=== PATIENT | female | born 2000 | race Caucasian/White ===

== ENCOUNTER 2020-10-03 07:44 | Inpatient (IN) | payer MEDICAID ==
[2020-10-03] MEDS ORDERED: RINGERS SOLUTION,LACTATED 1,000 ML IV PRN ×3 (08:22→08:51)
[2020-10-03] MEDS ORDERED: RINGERS SOLUTION,LACTATED 1,000 ML IV ONE (08:22)
[2020-10-03] MEDS ORDERED: MISOPROSTOL 0.2 MG TABLET ONE (08:23)
[2020-10-03] MEDS ORDERED: LIDOCAINE 1% INJ-PF (10 MG/ML) 30 ML SDV ONE (08:23)
[2020-10-03] MEDS ORDERED: OXYTOCIN/0.9 % SODIUM CHLORIDE 30 UNIT/500 ML RTUINJ ONE (08:23)
[2020-10-03] MEDS ORDERED: OXYTOCIN 10 UNIT/ML VIAL ONE (08:23)
[2020-10-03] MEDS ORDERED: NALBUPHINE HCL INJ 10 MG/1 ML AMPULE ONE (08:32)
[2020-10-03] MEDS ORDERED: PROMETHAZINE HCL INJ 25 MG/1 ML VIAL ONE (08:32)
[2020-10-03 08:34] LABS: URINE AMPHETAMINES SCREEN NEGATIVE; URINE BARBITURATES SCREEN NEGATIVE; URINE BENZODIAZEPINES SCREEN NEGATIVE; URINE COCAINE SCREEN NEGATIVE; URINE MARIJUANA (THC) SCREEN NEGATIVE; URINE METHADONE SCREEN NEGATIVE; URINE PHENCYCLIDINE SCREEN NEGATIVE
[2020-10-03] MEDS ORDERED: PROMETHAZINE HCL INJ 25 MG/1 ML VIAL IV PRN ×2 (08:35→18:22)
[2020-10-03 09:02] LABS: ABSOLUTE BASOPHILS # (AUTO) 0.1 10^3/uL (0.0-0.2); ABSOLUTE EOSINOPHILS # (AUTO) 0.1 10^3/uL (0.0-0.6); ABSOLUTE LYMPHOCYTES (AUTO) 2.7 10^3/uL (0.5-4.7); ABSOLUTE MONOCYTES (AUTO) 0.6 10^3/uL (0.1-1.4); ABSOLUTE NEUT (AUTO) 7.6 10^3/uL (1.7-8.2); BASOPHILS % (AUTO) 0.5 % (0-2); EOSINOPHILS % (AUTO) 0.5 % (0-6); HEMATOCRIT 30.5 % (36.0-47.0); LYMPHOCYTES % (AUTO) 24.8 % (13-45); MEAN CORPUSCULAR HEMOGLOBIN 25.4 pg (27.0-33.4); MEAN CORPUSCULAR HGB CONC 32.7 g/dL (32.0-36.0); MEAN CORPUSCULAR VOLUME 78 fl (80-97); MONOCYTES % (AUTO) 5.2 % (3-13); PLATELET COUNT 168 10^3/uL (150-450); RED BLOOD COUNT 3.92 10^6/uL (3.72-5.28); RED CELL DISTRIBUTION WIDTH 17.8 % (11.5-14.0); TOTAL CELLS COUNTED % (AUTO) 100 %; WHITE BLOOD COUNT 11.1 10^3/uL (4.0-10.5)
[2020-10-03] MEDS ORDERED: EPHEDRINE SULFATE INJ 50 MG/1 ML AMPULE ONE (09:06)
[2020-10-03] MEDS ORDERED: FENTANYL/BUPIVACAINE/NS/PF 300 MCG/150 ML RTUINJ EPI ONE (09:07)
[2020-10-03] MEDS ORDERED: ROPIVACAINE HCL 0.2% INJ/PF (2 MG/ML) 20 ML SDV ONE (09:07)
[2020-10-03] MEDS ORDERED: NALBUPHINE HCL INJ 10 MG/1 ML AMPULE INJ ONE (09:15)
--- NOTE | 2020-10-03 10:03 | Admission Physical ---
Datetime Report Generated by CPN: 10/03/2020 10:03 CURRENT ADMISSION Chief Complaint: Uterine Contractions; Suspected Ruptured Membranes Indication for Induction: Not Applicable Admit Impression : Term, Intrauterine ; Active Labor; Ruptured Membranes Admit Plan: Admit to Unit; Initiate Labor Protocol; Initiate Labor Augmentation Protocol ALLERGIES Medication Allergies: No Medication Allergies: shellfish derived (10/03/2020) Latex: No Latex Allergies Food Allergies: shellfish OBSTETRICAL HISTORY EDC: 10/07/2020 00:00 : 3 Para: 0 Term: 0 : 0 SAB: 2 IAB: 0 Gestational Diabetes: No Rh Sensitization: No Incompetent Cervix: No CHICA: No Infertility: No ART Treatment: No Uterine Anomaly: No IUGR: No Hx Previous C/S: No Macrosomia: No Hx Loss/Stillborn: No PIH: No Hx : No Placenta Previa/Abruption: No Depression/PP Depression: No PTL/PROM: No Post Hemorrhage: No SEE RECORDS Alcohol: No Marijuana : Yes Cocaine: No Other Illicit Drugs: No Cigarettes: Never Smoker. [id number] MEDICAL HISTORY Diabetes: No Blood Transfusion: No Pulmonary Disease (Asthma, TB): No Breast Disease: No Hypertension: No Paper Sorter Surgery: No Heart Disease: No Hosp/Surgery: No Autoimmune Disorder: No Anesthetic Complications: No Kidney Disease: No Abnormal Pap Smear: No Neuro/Epilepsy: No Psychiatric Disorders: Yes Other Medical Diseases: Yes Hepatitis/Liver Disease: No Significant Family History: No Varicosities/Phlebitis: No Trauma/Violence : No Thyroid Dysfunction: No Medical History Comments: depression, anxiety, childhood asthma, recurrent ovarian cyst INFECTIOUS HISTORY Gonorrhea: No Genital Herpes: No Chlamydia: No Tuberculosis: No Syphilis: No Hepatitis: No HIV/AIDS Exposure: No Rash or Viral Illness: No HPV: No PHYSICAL EXAM General: Normal HEENT: Normal Neurologic: Normal Thyroid: Normal Heart: Normal Lungs: Normal Breast: Normal Back: Normal Abdomen: Normal Genitourinary Exam: Normal Extremities: Normal DTRs: Normal Pelvic Type: Adequate Vital Signs: Reviewed; Within Normal Limits VAGINAL EXAM Dilatation: 3 Effacement: 75 Station: -1 MEMBRANES Pooling: Positive Membranes: Ruptured Amniotic Fluid Color: Clear FETUS A EGA: 39.3 Monitoring: External US FHR- Baseline: 120 Variability: Moderate 6-25bpm Accelerations: 15X15 Decelerations: None FHR Category: Category I Estimated Weight (gm): 4000 Presentation: Vertex PLANS FOR LABOR AND DELIVERY Pain Management: Epidural Feeding Preference: Breast Circumcision: N/A INFORMED CONSENT Signature: with User ID: [email or web address]
[2020-10-03] MEDS ORDERED: MEASLES,MUMPS&RUBELLA VACC/PF 0.5 ML VIAL SUBCUT PRN (18:22)
[2020-10-03] MEDS ORDERED: PROMETHAZINE HCL 25 MG TABLET PO PRN (18:22)
[2020-10-03] MEDS ORDERED: DIPH/PERTUSS(ACELL)/TETANUS VAC/PF 0.5 ML SYR (>=10YO) IM PRN (18:22)
[2020-10-03] MEDS ORDERED: BENZOCAINE/MENTHOL AEROSOL SPRAY 56 ML TOP PRN (18:22)
[2020-10-03] MEDS ORDERED: MAGNESIUM HYDROXIDE SUSP 30 ML UDCUP PO PRN (18:22)
[2020-10-03] MEDS ORDERED: ACETAMINOPHEN 325 MG TABLET PO PRN (18:22)
[2020-10-03] MEDS ORDERED: DIBUCAINE 1% OINTMENT 28 GM TP PRN (18:22)
[2020-10-03] MEDS ORDERED: GLYCERIN/WITCH HAZEL LEAF 1 EACH MED..WIPE TP PRN (18:22)
[2020-10-03] MEDS ORDERED: ACETAMINOPHEN WITH CODEINE #3 TABLET PO PRN ×2 (18:22)
[2020-10-03] MEDS ORDERED: NA PHOS,M-B/NA PHOS,DI-BA (ADULT) 133 ML ENEMA PR PRN (18:22)
[2020-10-03] MEDS ORDERED: PSEUDOEPHEDRINE HCL 30 MG TABLET PO PRN (18:22)
[2020-10-03] MEDS ORDERED: OXYTOCIN/0.9 % SODIUM CHLORIDE 30 UNIT/500 ML RTUINJ IV PRN (18:22)
[2020-10-03] MEDS ORDERED: ACETAMINOPHEN 650 MG SUPP.RECT PR PRN (18:22)
[2020-10-03] MEDS ORDERED: DIPHENHYDRAMINE HCL 25 MG CAPSULE PO PRN (18:22)
[2020-10-03] MEDS ORDERED: PROMETHAZINE HCL 25 MG SUPP.RECT PR PRN (18:22)
[2020-10-03] MEDS ORDERED: ZOLPIDEM TARTRATE 5 MG TABLET PO PRN (18:22)
--- NOTE | 2020-10-03 20:37 | Warning Signs in Babies ---
VOD Warning Signs Datetime Report Generated by N: 10/03/2020 20:37 VOD#608 -Warning Signs in Babies: Viewed with Parent(s)/Family (10/03/2020 20:29:Loida Corona RN)
[2020-10-03] MEDS ORDERED: IBUPROFEN 800 MG TABLET ONE (20:49)
[2020-10-03] MEDS: IBUPROFEN 800 MG TABLET PO SCH (21:55)
[2020-10-03] MEDS: FAMOTIDINE 20 MG TABLET PO SCH (22:26)
[2020-10-04] MEDS: IBUPROFEN 800 MG TABLET PO SCH ×4 (05:50→21:09)
[2020-10-04 06:53] LABS: HEMATOCRIT 28.1 % (36.0-47.0); HEMOGLOBIN 8.9 g/dL (12.0-15.5); MEAN CORPUSCULAR HGB CONC 31.8 g/dL (32.0-36.0); MEAN CORPUSCULAR VOLUME 79 fl (80-97); PLATELET COUNT 138 10^3/uL (150-450); RED BLOOD COUNT 3.58 10^6/uL (3.72-5.28); RED CELL DISTRIBUTION WIDTH 17.5 % (11.5-14.0); WHITE BLOOD COUNT 13.7 10^3/uL (4.0-10.5)
[2020-10-04] MEDS ORDERED: INFLUENZA QUAD (6MOS+) 2020-21 VAC 0.5 ML SYR IM ONE (08:00)
[2020-10-04] MEDS: FAMOTIDINE 20 MG TABLET PO SCH ×2 (09:43→21:09)
[2020-10-04] MEDS: PRENATAL VITAMIN W DHA CAPSULE PO SCH (09:43)
[2020-10-04] MEDS: SENNOSIDES/DOCUSATE 8.6-50 MG 1 EACH TABLET PO SCH (09:43)
[2020-10-04] MEDS: DOCUSATE SODIUM 100 MG CAPSULE PO SCH ×2 (09:43→17:24)
[2020-10-04] MEDS: FERROUS SULFATE 325 MG TABLET PO SCH ×2 (09:43→17:24)
--- NOTE | 2020-10-04 09:53 | PDOC PROGRESS REPORT ---
Subjective-OB Progress Note for:: 10/04/20 - PP day #1, doing well, UOB voiding, A+., Rubella immune, , Physical Exam (OB) Vital Signs: Temp Pulse Resp BP Pulse Ox 97.9 F 99 16 117/74 99 10/04/20 08:10 10/04/20 08:10 10/04/20 08:10 10/04/20 08:10 10/04/20 08:10 Intake & Output 10/03/20 10/04/20 10/05/20 06:59 06:59 06:59 Intake Total 1900 Output Total 300 Balance 1600 Weight 93.5 kg - General General Appearance: Appears well, Alert In distress: None - PIH/Pre-Eclampsia Clonus: Negative Headache: Absent Epigastric Pain: No Visual Changes: No - Maternal Morbidity 59. Maternal Morbidity (serious complications experinced by the mother associated with labor and delivery: None of the above - Lochia Lochia Amount: Scant < 10 ml Lochia Color: Rubra/Red - Abdomen Description: Soft, Round Hernia Present: No Fundal Description: Firm, Midline Fundal Height: u/u - u/2 - Respiratory Respiratory Status: No respiratory distress - Abdominal Distension: No distension Tenderness: Nontender - Genitourinary Genitourinary Note: voiding - Extremities Upper extremity: Normal inspection Lower extremities: Normal inspection - Neurological Cognition: Normal Orientation: AAOx4 - Psychological Associated symptoms: Normal affect, Normal mood - Skin Skin Temperature: Warm Skin Moisture: Dry Objective-Diagnostic Laboratory: 10/04/20 06:32 10/03/20 10/04/20 08:45 06:32 WBC 13.7 H RBC 3.58 L Hgb 8.9 L Hct 28.1 L MCV 79 L MCH 25.0 L MCHC 31.8 L RDW 17.5 H Plt Count 138 L Blood Type A POSITIVE Antibody Screen NEGATIVE Assessment and Plan(PN) - Assessment and Plan (1) (normal spontaneous vaginal delivery) Is this a current diagnosis for this admission?: Yes (2) History of depression Is this a current diagnosis for this admission?: Yes (3) History of anxiety Is this a current diagnosis for this admission?: Yes (4) Anemia affecting Qualifiers: Trimester: third trimester Qualified Code(s): O99.013 - Anemia complicating , third trimester Is this a current diagnosis for this admission?: Yes Plan:: ambulation encouraged, iron rich foods, Routine PP order. May give IV iron if p atient approves - Time Spent with Patient Time with patient: Less than 15 minutes Medications reviewed and adjusted accordingly: Yes - Disposition Anticipated Discharge Disposition: Home, Self Care Anticipated Discharge Timeframe: within 24 hours
[2020-10-04] MEDS ORDERED: IRON SUCROSE COMPLEX INJ/PF 100 MG/5 ML SDV IV ONE (10:30)
[2020-10-05] MEDS: IBUPROFEN 800 MG TABLET PO SCH (05:26)
[2020-10-05] MEDS: PRENATAL VITAMIN W DHA CAPSULE PO SCH (10:03)
[2020-10-05] MEDS: FAMOTIDINE 20 MG TABLET PO SCH (10:03)
[2020-10-05] MEDS: FERROUS SULFATE 325 MG TABLET PO SCH (10:03)
[2020-10-05] MEDS: SENNOSIDES/DOCUSATE 8.6-50 MG 1 EACH TABLET PO SCH (10:03)
[2020-10-05] MEDS: DOCUSATE SODIUM 100 MG CAPSULE PO SCH (10:03)
--- NOTE | 2020-10-05 10:35 | PDOC DISCHARGE SUMMARY ---
Impression - Admit/DC Date/PCP Admission Date/Primary Care Provider: 10/03/20 08:30 SANDY MANCIA MD Discharge Date: 10/05/20 - Discharge Diagnosis (1) Anemia affecting Is this a current diagnosis for this admission?: Yes (2) History of anxiety Is this a current diagnosis for this admission?: Yes (3) History of depression Is this a current diagnosis for this admission?: Yes (4) (normal spontaneous vaginal delivery) Is this a current diagnosis for this admission?: Yes - Additional Information Discharge Diet: Regular Discharge Activity: Balance Activity w/Rest, Pelvic Rest Referrals: SANDY MANCIA MD [Primary Care Provider] - Prescriptions: Ibuprofen [Motrin 800 mg Tablet] 800 mg PO Q8HP PRN #60 tablet PRN Reason: Vit/Dha [ Multi + Dha Capsule] 1 cap PO DAILY #90 capsule Home Medications: Ibuprofen [Motrin 800 mg Tablet] 800 mg PO Q8HP PRN #60 tablet 10/05/20 Vit/Dha [ Multi + Dha Capsule] 1 cap PO DAILY #90 capsule 10/05/20 Hospital Course 59. Maternal Morbidity (serious complications experinced by the mother associated with labor and delivery: None of the above Results Laboratory Results: WBC 13.7 10^3/uL (4.0-10.5) H 10/04/20 06:32 RBC 3.58 10^6/uL (3.72-5.28) L 10/04/20 06:32 Hgb 8.9 g/dL (12.0-15.5) L 10/04/20 06:32 Hct 28.1 % (36.0-47.0) L 10/04/20 06:32 MCV 79 fl (80-97) L 10/04/20 06:32 MCH 25.0 pg (27.0-33.4) L 10/04/20 06:32 MCHC 31.8 g/dL (32.0-36.0) L 10/04/20 06:32 RDW 17.5 % (11.5-14.0) H 10/04/20 06:32 Plt Count 138 10^3/uL (150-450) L 10/04/20 06:32 Lymph % (Auto) 24.8 % (13-45) 10/03/20 08:45 Lawrence % (Auto) 5.2 % (3-13) 10/03/20 08:45 Eos % (Auto) 0.5 % (0-6) 10/03/20 08:45 Baso % (Auto) 0.5 % (0-2) 10/03/20 08:45 Absolute Neuts (auto) 7.6 10^3/uL (1.7-8.2) 10/03/20 08:45 Absolute Lymphs (auto) 2.7 10^3/uL (0.5-4.7) 10/03/20 08:45 Absolute Monos (auto) 0.6 10^3/uL (0.1-1.4) 10/03/20 08:45 Absolute Eos (auto) 0.1 10^3/uL (0.0-0.6) 10/03/20 08:45 Absolute Basos (auto) 0.1 10^3/uL (0.0-0.2) 10/03/20 08:45 Seg Neutrophils % 69.0 % (42-78) 10/03/20 08:45 Membranes Rupture POSITIVE (NEGATIVE) H 10/03/20 07:48 Urine Opiates Screen NEGATIVE 10/03/20 07:48 Urine Methadone Screen NEGATIVE 10/03/20 07:48 Ur Barbiturates Screen NEGATIVE 10/03/20 07:48 Ur Phencyclidine Scrn NEGATIVE 10/03/20 07:48 Ur Amphetamines Screen NEGATIVE 10/03/20 07:48 U Benzodiazepines Scrn NEGATIVE 10/03/20 07:48 Urine Cocaine Screen NEGATIVE 10/03/20 07:48 U Marijuana (THC) Screen NEGATIVE 10/03/20 07:48 RPR NONREACTIVE (NONREACTIVE) 10/03/20 08:45 Blood Type A POSITIVE 10/03/20 08:45 Antibody Screen NEGATIVE 10/03/20 08:45 Plan Plan of Treatment: follow up in 4 weeks at [facility] for post check
[2020-10-05 11:25] VITALS: BP 117/74
--- NOTE | 2020-10-06 14:13 | Delivery Summary ---
Del Sum A-C Datetime Report Generated by CPN: 10/06/2020 14:12 DELIVERY PERSONNEL DELIVERY PERSONNEL: [id number] Delivery Doctor:: Leslee Epstein MD Labor and Delivery Nurse:: Chantel Brown RNwhite lead filterer Nurse:: Ana Wallace RN Vulcanized Fiber Unit Operator/MEAT CUTTER: Norma Carlson MANAGER INTERNET Additional Personnel: : Leah Manley RN MATERNAL INFORMATION Delivery Anesthesia: Epidural Medications After Delivery: Pitocin Drip 20 Units/1000ml NSS Estimated Blood Loss (ml): 200 Delivery QBL: 200 Maternal Complications: None LABOR SUMMARY EDC: 10/07/2020 00:00 No. Babies in Womb: 1 Attempted: No Labor Anesthesia: Epidural LABOR INFORMATION Reason for Induction: Not Applicable Onset of Labor: 10/03/2020 07:15 Complete Dilatation: 10/03/2020 17:21 Oxytocin: N/A Group B Beta Strep: negative Steroids Given: None Reason Steroids Not Administered: Not Applicable MEMBRANES Membranes Rupture Method: Spontaneous Rupture of Membranes: 10/03/2020 07:15 Length of Rupture (hr): 10.82 Amniotic Fluid Color: Clear Amniotic Fluid Amount: Small Amniotic Fluid Odor: Normal STAGES OF LABOR Stage 1 hr: 10 Stage 1 min: 6 Stage 2 hr: 0 Stage 2 min: 43 Stage 3 hr: 0 Stage 3 min: 4 Total Time in Labor hr: 10 Total Time in Labor min: 53 VAGINAL DELIVERY Episiotomy: None Laceration #1: None Laceration Extension #1: N/A Laceration Repair: Not Applicable Sponge Count Correct: N/A Sharps Count Correct: N/A CSECTION DELIVERY Primary Indication: N/A Secondary Indication: N/A CSection Incidence: N/A Labor: N/A Elective: N/A CSection Incision: N/A BABY A INFORMATION Infant Delivery Date/Time: 10/03/2020 18:04 Method of Delivery: Vaginal Method of Delivery: Vaginal Method of Delivery: Vaginal Nurse Controlled Delivery: No Born in Route : No Born in Route : No (Annotations: Data stored by [facility] on behalf of user) : N/A Forceps: N/A Vacuum Extraction: N/A Shoulder Dystocia : No PRESENTATION/POSITION BABY A Presentation: Cephalic Cephalic Presentation: Vertex Vertex Position: Left Occipital Anterior Breech Presentation: N/A PLACENTA INFORMATION BABY A Placenta Delivery Time : 10/03/2020 18:08 Placenta Method of Delivery: Spontaneous Placenta Method of Delivery: Spontaneous Placenta Status: Delivered SCORES BABY A Heart Rate 1 min: >100 bpm Resp Effort 1 min: Good Cry Reflex Irritability 1 min: Cough or Sneeze or Pulls Away Muscle Tone 1 min: Active Motion Color 1 min: Body Mcgrew, Extremities Blue Resuscitation Effort 1 min: Tactile Stimulation SCORE 1 MIN: 9 Heart Rate 5 min: >100 bpm Resp Effort 5 min: Good Cry Reflex Irritability 5 min: Cough or Sneeze or Pulls Away Muscle Tone 5 min: Active Motion Color 5 min: Completely Mcgrew Resuscitation Effort 5 min: Tactile Stimulation SCORE 5 MIN: 10 INFORMATION BABY A Gestational Age at Delivery: 39.3 Gestational Status: Full Term- 39- 40.6 Weeks Infant Outcome : Liveborn Condition : Stable Infant Sex: Female Infant Sex: Female Sex: Female IDENTIFICATION BABY A Infant Verification Date/Time: 10/03/2020 18:20 ID Band Number: [id number] Mother's Name Verified: Yes RN Verifying Infant: C. Gilchrist RN; M. Kevin, RNC WEIGHT/LENGTH BABY A Birthweight (gm): 3524 Infant Weight (lb): 7 Infant Weight (oz): 12 Length (in): 20.00 Infant Length (cm): 50.80 CORD INFORMATION BABY A No. Cord Vessels: 3 Nuchal Cord : N/A Cord Blood Taken: Yes-For Storage (Mom's Blood type +) Suction: None ASSESSMENT BABY A Physical Findings at Delivery: Within Normal Limits Skin to Skin: Yes Infant Care By: Toby, RN Transferred To: Remains with Mother BABY B INFORMATION : N/A SIGNATURES Signature: with User ID: [email or web address]
== END 2020-10-05 13:30 | disposition home or self-care (01) | DRG 807 ==
LOC: LC 07:44 → LR 08:30 → 2S 20:56
PROVIDERS: ADMIT Obstetrics & Gynecology; ATTEND Obstetrics & Gynecology
PROC: 10E0XZZ Delivery of Products of Conception, External Approach (ICD-10-PCS; principal; 2020-10-03)
PROC: 3E0234Z Introduction of Serum, Toxoid and Vaccine into Muscle, Percutaneous Approach (ICD-10-PCS; 2020-10-04)
PROC: 3E02340 Introduction of Influenza Vaccine into Muscle, Percutaneous Approach (ICD-10-PCS; 2020-10-05)
DX: O99.02 Anemia complicating childbirth (principal); Z37.0 Single live birth; D64.9 Anemia, unspecified; O99.344 Other mental disorders complicating childbirth; F41.9 Anxiety disorder, unspecified; F32.9 Major depressive disorder, single episode, unspecified; Z91.013 Allergy to seafood; Z3A.39 39 weeks gestation of pregnancy; Z23 Encounter for immunization
CPT/HCPCS: 1967; 36415; 80307; 84112; 85025; 85027; 86592; 86850; 86900; 86901; 90471; 90686; 90715; G0008; J1756; J2300; J2550; J2590; J2795; J3010; J3490